=== PATIENT | male | born 1935 | race Caucasian/White ===

== ENCOUNTER 2016-11-07 08:39 | Inpatient (IN) | payer MEDICARE, BC ==
[2016-11-03 10:24] LABS: HEMATOCRIT 37.6 % (40.0-51.0); HEMOGLOBIN 13.1 g/dL (13.6-17.8)
[2016-11-03 10:42] LABS: BUN (BLOOD UREA NITROGEN) 12 MG/DL (6-23); CALCIUM, SERUM 8.7 MG/DL (8.5-10.4); CHLORIDE, SERUM 96 MMOL/L (96-112); CO2 (CARBON DIOXIDE) 28 MMOL/L (24-34); CREATININE 1.03 MG/DL (0.70-1.30); GFR AFRICAN AMERICAN 79 ML/MIN (>=60); GFR NON AFRICAN AMERICAN 68 ML/MIN (>=60); GLUCOSE, SERUM 103 MG/DL (60-99); POTASSIUM, SERUM 3.5 MMOL/L (3.5-5.3); SODIUM, SERUM 132 MMOL/L (135-148)
--- NOTE | ~2016-11-07 | PREOPHP ---
PreOp History and Physical [facility] [address] [place]. [address] NAME: ARGENTINA MG : 35 STATUS : ADM IN PAT#: [id number] AGE: 81 ADM/REG DATE : 11/07/16 MR#: [id number] REPORT SERV DATE: 11/07/16 DICTATED BY: REGIS REBOLLEDO DATE: 11/07/16 REPORT STATUS : Draft TRANSCRIBED BY: MODL DATE: 11/07/16 CHIEF COMPLAINT: Back pain and intractable left hip and leg pain. HISTORY OF PRESENT ILLNESS: This is an 81-year-old male, who has had a previous L3-L4 fusion. He has now developed a totally intractable left buttock and leg pain that has been so bad that he can hardly stand or walk. Pain is 10/10 and is much worse with any attempts at standing and walking. Plain x-rays reveal a marked collapse of the disk space. 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 There is some degree of lateral recess stenosis, but by far the worst is in the foraminal zone. The MRI does show the severe foraminal stenosis as outlined above. The patient is now brought to the surgery, having failed conservative care for hardware removal at L3-L4, followed by left-sided L4-L5 and L5- S1 hemilaminectomy, foraminotomy, and facetectomy. There will be a transforaminal diskectomy, anterior interbody cage insertion, posterolateral interbody fusion with local bone graft and allograft. This will be followed by a posterior percutaneous instrumentation with Voyager system for restabilization. Prior to surgery, the risks, benefits, alternatives, and expectations are explained. Consent form has been signed. Also please note, due to the deformity and due to the desire to carry out the safest and most precise dissection and also in order to identify correct level of surgery, I feel intraoperative navigation is mandatory. PAST MEDICAL HISTORY: Includes osteoarthritis, rheumatoid arthritis, hypercholesterolemia, hypertension. PAST SURGICAL HISTORY: Has included: 1. Previous lumbar fusion at L3-L4. 2. Shoulder arthroscopy and rotator cuff repair. 3. Bilateral carpal tunnel release. CURRENT MEDICATIONS: Include metoprolol, multiple vitamins, nifedipine, Prilosec, potassium, prednisone, simvastatin, alendronate, aspirin, chlorthalidone, folic acid, calcium. ALLERGIES: NONE. SOCIAL HISTORY: He is , right-hand dominant, and never smoked. FAMILY HISTORY: Noncontributory. REVIEW OF SYSTEMS: Denies any current chest pain, pressure, or shortness of breath. PHYSICAL EXAMINATION: VITAL SIGNS: He is 5 feet 9 inches and 175 pounds, BMI is 25.8. GENERAL: He is alert, cooperative, well oriented. Ambulates independently. He does walk with his trunk flexed forward. PreOp History and Physical [address] [place]. [address] NAME: ARGENTINA MG : 35 STATUS : ADM IN PAT#: [id number] AGE: 81 ADM/REG DATE : 11/07/16 MR#: [id number] REPORT SERV DATE: 11/07/16 DICTATED BY: REGIS REBOLLEDO DATE: 11/07/16 REPORT STATUS : Draft TRANSCRIBED BY: CHIQUITA DATE: 11/07/16 HEENT: Grossly normal. LUNGS: Clear to auscultation. HEART: Rate is regular and rhythmic. ABDOMEN: Soft with good bowel sounds. No peritoneal signs are noted. MUSCULOSKELETAL: The spine itself has some loss of lordosis. There are previous incisions which are well healed. He has very limited range of motion. Straight leg raising signs are negative. His motor strength is weakened on the left side. His tibialis anterior and EHL are 3/5. His gastrocsoleus is 4+/5. He cannot heel walk or toe walk. He has some decreased sensation in the L4 and L5 distribution on the left, compared to the right. Patella and Achilles reflexes are lost bilaterally. Toes are downgoing. No ankle clonus is found. No abnormal pain behavior is noted. Amber signs are negative. DANG signs are negative. Orthopedically, he has no pain with moving the hips, knees, or ankles. There are good pulses in all four extremities. No abnormal skin lesions are found. ASSESSMENT AND RECOMMENDATIONS: As listed above. RHONDA/CHIQUITA Regis Rebolledo D.O. / [id number] CC: Regis Rebolledo D.O.
--- NOTE | ~2016-11-07 | CN ---
Consultation Report [facility] [address] [place]. [address] NAME: ARGENTINA MG : 35 STATUS : ADM IN PAT#: [id number] AGE: 81 ADM/REG DATE : 11/07/16 MR#: [id number] REPORT SERV DATE: 11/09/16 DICTATED BY: SANA ROUSSEAU DATE: 11/09/16 REPORT STATUS : Draft TRANSCRIBED BY: MODL DATE: 11/09/16 GI CONSULTATION NOTE DATE OF CONSULTATION: 11/08/2016 REASON FOR CONSULTATION: Possible gastric outlet obstruction. HISTORY OF PRESENT ILLNESS: Mr. Mg is an 81-year-old gentleman with multiple comorbidities including hypertension, dyslipidemia, rheumatoid arthritis, DJD, who is status post recent spinal surgery. GI is being consulted for possible gastric outlet obstruction, which was initially seen on CT of his chest. Repeat CT of his abdomen showed a small hiatal hernia and improved gastric distention. There is left lower lobe consolidation, but the stomach appeared mildly distended, but significantly less distended than previously. There is some mild antral thickening. Duodenum, jejunum, and ileum all appeared normal without any bowel wall thickening or stranding. He has had an NG tube placed earlier today to low intermittent suction and soon after 500 mL of bilious material were retrieved, total for the day is 600 mL. The patient reports significant improvement and denies any nausea or vomiting. PAST MEDICAL HISTORY: Hypertension, dyslipidemia, rheumatoid arthritis, osteoarthritis, DJD, osteopenia. PAST SURGICAL HISTORY: Bilateral carpal tunnel release, bilateral shoulder surgery, spinal surgery with lumbar fusion. SOCIAL HISTORY: Former tobacco use. FAMILY HISTORY: Prostate cancer. MEDICATIONS: Reviewed. ALLERGIES: NO KNOWN DRUG ALLERGIES. PHYSICAL EXAMINATION: GENERAL: The patient is afebrile. He is on minimal Levophed for pressor support at this time. No acute distress. Awake and alert. HEENT: Atraumatic, normocephalic. Anicteric. Mucous membranes are moist. CARDIAC: S1, S2. CHEST: Poor inspiratory and expiratory effort. ABDOMEN: Soft, but distended and tympanic. Positive bowel sounds. Nontender. LABORATORY DATA: Showed WBC 16.3, hemoglobin 12.1, hematocrit 36.4, platelets 315. Sodium 133, potassium 3.3, chloride 97, bicarb 27, BUN 17; creatinine 2.37, was 0.95; glucose 91. KUB showed mild fecal burden in the right colon, but not overly distended, small bowel Consultation Report [facility] [address] [place] [address] NAME: ARGENTINA MG : 35 STATUS : ADM IN PAT#: [id number] AGE: 81 ADM/REG DATE : 11/07/16 MR#: [id number] REPORT SERV DATE: 11/09/16 DICTATED BY: SANA ROUSSEAU DATE: 11/09/16 REPORT STATUS : Draft TRANSCRIBED BY: MODAngelo DATE: 11/09/[address] scan as described above. IMPRESSION AND PLAN: Gastric distention with possible gastric outlet obstruction. We will optimize bowel regimen with Colace and MiraLAX as no bowel movements for the past few days. We would like to evaluate endoscopically; however, would like to make sure that his cardiovascular status is optimized and as he is improving, would like him to be off his Levophed and his acute kidney injury improved prior to anesthesia and endoscopy. Continue NG tube to low intermittent suction for now. We will continue to follow with you. ELENA/CHIQUITA Sana Rousseau MD / [id number] CC: Kalin Griffiths M.D.
--- NOTE | ~2016-11-07 | CN ---
Consultation Report [facility] [address] [place]. [address] NAME: ARGENTINA MG : 35 STATUS : ADM IN PAT#: [id number] AGE: 81 ADM/REG DATE : 11/07/16 MR#: [id number] REPORT SERV DATE: 11/08/16 DICTATED BY: JAZ BAIRES DATE: 11/08/16 REPORT STATUS : Draft TRANSCRIBED BY: MODL DATE: 11/08/16 PULMONARY CONSULT DATE OF CONSULTATION: 11/08/2016 REASON FOR CONSULTATION: Pulmonary consulted secondary to hypoxia. HISTORY OF PRESENT ILLNESS: Mr. Mg is an 81-year-old white male, former smoker, with hypoxia post-spinal surgery. He is complaining of nonproductive cough and shortness of breath since this morning. Pulmonary was consulted for assistance. His history is somewhat vague and he is unable to give full details. He states he had a gradual onset of shortness of breath starting early this morning. He also describes the nonproductive cough as noted. He is unable to give further details regarding his cough. He does have a long history of significant GERD symptoms. He denies chest pain, chest tightness, current wheezing, dysphagia symptoms, abdominal pain, or orthopnea. It is notable that he has a history of frequent wheezing as an outpatient. He denies triggers for his symptoms and denies a history of previous pulmonary diseases, though he is on Singulair as an outpatient. As noted, he denies dysphagia symptoms, but he did have a swallow evaluation in 2009 that was negative for aspiration. As part of his evaluation for hypoxia, he had a CT angiogram today that was negative for a pulmonary embolism, but did reveal bilateral lower lobe consolidation, suspicious for possible aspiration. PAST MEDICAL HISTORY: He denies past medical history of pulmonary diseases. 1. Former smoker. 2. Hypertension. 3. Hyperlipidemia. 4. Rheumatoid arthritis. 5. Osteoarthritis. 6. Bilateral carpal tunnel release. 7. Bilateral shoulder surgery. 8. Previous spine surgery. 9. Osteopenia. FAMILY HISTORY: He denies a family history of pulmonary diseases. SOCIAL HISTORY: Mr. Mg smoked one to one and a half packs of cigarettes per day for 20 years and quit in 1962. He denies ethanol intake, past/present drug use, or occupational exposures. He has a remote history of chewing "a little tobacco." He is and has two living children and one child who from metastatic prostate cancer. Consultation Report [place] [id number] [facility] [place]. [address] NAME: ARGENTINA MG : 35 STATUS : ADM IN PAT#: [id number] AGE: 81 ADM/REG DATE : 11/07/16 MR#: [id number] REPORT SERV DATE: 11/08/16 DICTATED BY: JAZ BAIRES DATE: 11/08/16 REPORT STATUS : Draft TRANSCRIBED BY: CHIQUITA DATE: 11/08/16 MEDICATIONS: Outpatient and inpatient medications were reviewed and are as documented in the record. As noted in the history of present illness, he was on Singulair 10 mg once daily as an outpatient. He was on no other pulmonary medications as an outpatient. ALLERGIES: HE DENIES MEDICATION ALLERGIES. REVIEW OF SYSTEMS: A 10-point system review was conducted and is remarkable for the symptoms as described in the history of present illness. As noted, he has complaints of significant GERD symptoms. He denies symptoms of obstructive sleep apnea. PHYSICAL EXAMINATION: VITAL SIGNS: Temperature 99.3 degrees, heart rate 90-100 by me, blood pressure 85/52, respiratory rate 18, and oxygen saturation 85% on supplemental oxygen at a flow rate of 15 L/minute. GENERAL: Obese white male. Alert, oriented, no apparent distress. HEENT: Normocephalic. Atraumatic. There is no scleral icterus. The conjunctivae are clear. The oropharynx is clear. NECK: Supple. No lymphadenopathy was noted. LUNGS: Good effort. There are diminished breath sounds at both bases. The lungs are clear to auscultation bilaterally. HEART: Regular rate and rhythm. No ectopy was noted. ABDOMEN: Soft. Distended. There are normal bowel sounds in all four quadrants. Nontender. No masses were palpable. BILATERAL EXTREMITIES: There is no clubbing, cyanosis, or edema. NEUROLOGICAL: Limited exam was found to be nonfocal. SKIN: No rashes were noted. LABORATORY RESULTS: Labs were reviewed and are as documented in the record. Notable labs include a white blood cell count of 10.8. The arterial blood gas done today revealed a pH of 7.34, pCO2 of 47, and pO2 of 55 on supplemental oxygen at 100%. CT angiogram of the chest done today did not reveal any pulmonary emboli. There is bibasilar consolidation. There is significant dilatation of the esophagus. The abdomen has an air-fluid level present. ASSESSMENT AND PLAN: Mr. Mg is an 81-year-old white male, former smoker, with possible aspiration secondary to gastric outlet obstruction. He does have hypoxia and hypotension as noted. His symptoms started today and he is post spine surgery. 1. I recommend empiric antibiotic treatment with Zosyn and vancomycin for possible aspiration. 2. We would make him n.p.o. and place a nasogastric tube. 3. Check CT of his abdomen as the CT angiogram of the chest did not include the entire abdomen. Consultation Report [facility] [address] [facility] [place]. [address] NAME: ARGENTINA MG : 35 STATUS : ADM IN [facility]#: [id number] AGE: 81 ADM/REG DATE : 11/07/16 MR#: [id number] REPORT SERV DATE: 11/08/16 DICTATED BY: JAZ BAIRES DATE: 11/08/16 REPORT STATUS : Draft TRANSCRIBED BY: MODL DATE: 11/08/16 4. Consult GI, particularly in light of his CT findings and his history of significant gastroesophageal reflux disease. 5. Check his procalcitonin. 6. Add bronchodilators and nebulized steroids as it may help with his oxygenation. 7. Titrate his supplemental oxygen to an oxygen saturation greater than or equal to 91% and use high-flow nasal cannula or Vapotherm if needed. 8. Improved pulmonary toilet-EzPAP will be added to his regimen. 9. Re-evaluate for possible aspiration and stop empiric antibiotics if indicated. Thank you very much for this consultation. Further recommendations to follow dependent on additional data and patient's response to therapy. PS/MODL Jaz Baires M.D. / [id number] CC: Regis Webster D.O.
--- NOTE | ~2016-11-07 | CN ---
Consultation Report [place] [id number] [facility] [place]. [address] NAME: ARGENTINA MG : 35 STATUS : ADM IN PAT#: [id number] AGE: 81 ADM/REG DATE : 11/07/16 MR#: [id number] REPORT SERV DATE: 11/08/16 DICTATED BY: MELISSA PRICE DATE: 11/08/16 REPORT STATUS : Draft TRANSCRIBED BY: MODL DATE: 11/08/16 NEPHROLOGY CONSULTATION DATE OF CONSULTATION: 11/08/2016 REASON FOR CONSULTATION: Acute kidney injury. HISTORY OF PRESENT ILLNESS: Mr. Mg is a pleasant 81-year-old white male with past medical history of hypertension, rheumatoid arthritis, hyperlipidemia, osteoarthritis, and previous spine surgery, who underwent spinal surgery on 11/07/2016, consisting of hardware removal from L3-L4 with transforaminal diskectomy and left L4-L5, L5-S1 hemilaminectomy and facetectomy. Postoperatively, the patient developed hypoxia and shortness of breath this morning. He underwent a CT angiogram, which did not show pulmonary embolism, but did show a large dilated esophagus with probable aspiration pneumonia. The patient subsequently became hypoxic and hypotensive and was transferred to the ICU. Blood pressure was in the 80s for approximately 1 to 2 hours. Serum creatinine this morning is 1.01 and it is increased to 2.37. Urine output is slowly improving. Presently, he is on vasopressors. CT scan showed no obstruction or hydronephrosis. Urinalysis shows specific gravity of 1.040, 8 white blood cells with no proteinuria. Urine sodium is noted to be low at 12. He has been empirically started on vancomycin and Zosyn. Serum cortisol was normal at 33. PAST MEDICAL HISTORY: 1. Hypertension. 2. Hyperlipidemia. 3. Rheumatoid arthritis. 4. Osteoarthritis. 5. Bilateral carpal tunnel release. 6. Bilateral shoulder surgery. 7. Previous spine surgery. 8. Osteopenia. FAMILY HISTORY: No documented renal disease. SOCIAL HISTORY: The patient smokes one to one and half packs of cigarettes per day. He has remote history of tobacco use. No documented alcohol or drug use. ALLERGIES: NO KNOWN DRUG ALLERGIES. REVIEW OF SYSTEMS: All systems reviewed and negative excluding those mentioned in history of present illness, although somewhat limited as he is sedate. HOME MEDICATIONS: 1. Fosamax 70 daily. Consultation Report [facility] [address] [place]. [address] NAME: ARGENTINA MG : 35 STATUS : ADM IN PAT#: [id number] AGE: 81 ADM/REG DATE : 11/07/16 MR#: [id number] REPORT SERV DATE: 11/08/16 DICTATED BY: MELISSA PRICE DATE: 11/08/16 REPORT STATUS : Draft TRANSCRIBED BY: MODL DATE: 11/08/16 2. Aspirin 81 daily. 3. Edarbi 80 mg daily. 4. B complex 1 daily. 5. Chlorthalidone 25 daily. 6. Vitamin D3 a 1000 daily. 7. Coenzyme Q 100 twice a day. 8. Magnolia 180 daily. 9. Folic acid 1 mg daily. 10.Neurontin 600 twice a day. 11.Methotrexate 2.5 five tablets weekly. 12.Metoprolol 50 daily. 13.Singulair 10 daily. 14.Multivitamin 1 daily. 15.Omeprazole 20 twice a day. 16.Potassium gluconate 595 mg twice a day. 17.Mirapex 0.25 mg daily. 18.Prednisone 5 daily. 19.Simvastatin 40 daily. 20.Nifedipine 30 daily. PHYSICAL EXAMINATION: VITAL SIGNS: Blood pressure 94/53, temperature 98.6, pulse 97, respiratory rate 18. GENERAL: This is acute on chronically ill white male, resting, somewhat lethargic, but arouses and follows simple commands. HEENT: NG tube is noted to be in place. NECK: Supple. No JVD. No thyromegaly. CARDIOVASCULAR: Regular rate and rhythm. S1, S2 without rubs or gallops. Point of maximal impulse nondisplaced. RESPIRATORY: Coarse breath sounds with a few scattered anterior rhonchi. No tachypnea or accessory muscles in use. GI: Abdomen distended, soft. No hepatosplenomegaly. No rebound, guarding, or signs of peritonitis. EXTREMITIES: No cyanosis, clubbing or edema. Distal pulses 2+ symmetrically intact. SKIN: No rash or breakdown. Normal turgor. NEUROLOGIC: Cranial nerves 2 through 12 grossly intact. Motor sensory examinations within normal limits. LABS AND DIAGNOSTIC DATA: Urine sodium 12, urine protein 60. Urinalysis shows specific gravity 1.040, pH of 5, trace leukocyte esterase, 57 red blood cells, 8 white blood cells. Sodium 133, potassium 3.3, chloride 97, bicarb 27, BUN 17, creatinine 2.37. ASSESSMENT: 1. Acute kidney injury, status post back surgery, 11/07/2016 with possible aspiration pneumonia with systemic inflammatory response syndrome and CT angiogram this morning with interval rise in serum creatinine from 1 to 2.3. Suspect acute tubular necrosis Consultation Report [place] [id number] [place]. [address] NAME: ARGENTINA MG : 35 STATUS : ADM IN PAT#: [id number] AGE: 81 ADM/REG DATE : 11/07/16 MR#: [id number] REPORT SERV DATE: 11/08/16 DICTATED BY: MELISSA PRICE DATE: 11/08/16 REPORT STATUS : Draft TRANSCRIBED BY: CHIQUITA DATE: 11/08/16 and contrast-induced nephropathy. 2. Hypotension/shock likely secondary to aspiration pneumonia. 3. Rheumatoid arthritis, on chronic steroids with serum cortisol of 33. 4. Dilated esophagus ? Gastric outlet obstruction, status post nasogastric tube placement with decompression. 5. Hyponatremia. PLAN: 1. Change IV fluids to D5 normal saline. 2. Renally dose antibiotics. 3. Discontinue antihypertensives and Fleet Enema. 4. Supportive care group to follow with you. Thank you for this consultation. YOVANY/CHIQUITA Melissa Price M.D. / [id number] CC: Regis Webster D.O.
--- NOTE | ~2016-11-07 | DS ---
Discharge Summary [facility] [address] [place]. [address] NAME: ARGENTINA MG : 35 STATUS : DIS IN PAT#: [id number] AGE: 81 ADM/REG DATE : 11/07/16 MR#: [id number] REPORT SERV DATE: 11/26/16 DICTATED BY: REGIS REBOLLEDO DATE: 11/25/16 REPORT STATUS : Draft TRANSCRIBED BY: MODAngelo DATE: 11/25/16 Data Collection from hospitalization DISCHARGE DIAGNOSES: 1. Previous fusion with hardware at L3-4. 2. Severe degenerative disk disease, foraminal spinal stenosis, requiring facetectomy at L4-5 and L5-S1. 3. Iatrogenic instability secondary to severe degenerative disk disease. 4. Degenerative lumbar scoliosis. 5. 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 6. Hypertension. 7. Hypercholesterolemia. 8. Rheumatoid arthritis. 9. Osteoarthritis. CONSULTATIONS: 1. Jaz Patel M.D. 2. Melissa Gómez M.D. 3. Jaci Rousseau MD. PROCEDURES PERFORMED: 1. Microscopic and navigation-assisted surgery; hardware removal at L3-4; left L4-5 and L5- S1 hemilaminectomy, foraminotomy, and facetectomy; garcia osteotomy at L5 and S1 (posterior column osteotomy); transforaminal diskectomy at L4-5 and L5-S1; anterior interbody Elevate cage at L4-5 and L5-S1; posterior lateral interbody fusion with local bone graft, allograft, and a small dosage of bone protein; posterior percutaneous Voyager segmental instrumentation at L3-S1 on 11/07/2016. 2. CTA of the chest on 11/08/2016. 3. CT scan of the abdomen and pelvis without contrast on 11/08/2016. PATHOLOGY: Lumbar spine repair - fragmented cartilage, bone, and soft tissue. No evidence was seen of an infectious or neoplastic process. Metal removal - orthopedic hardware (gross assessment). MEDICATIONS: ProAir two puffs via inhaler every four hours as needed, Fosamax 70 mg every seven days, aspirin 81 mg at bedtime, super B complex one tablet as instructed, vitamin D3 1000 units daily, CoQ10 100 mg twice a day, Colace 100 mg twice a day, Magnolia 180 mg every evening, folic acid 1 mg every evening, Neurontin 500 mg twice a day, Balfour 5/325 one tablet every four hours as needed, Levaquin 750 mg daily, Robaxin 500 mg every eight hours, Toprol- XL 25 mg every evening, Flagyl 500 mg three times a day, Dulera two puffs via inhaler twice a day, Singulair 10 mg at bedtime, Centrum tablets one tablet daily, Prilosec 20 mg twice a day, Mirapex 0.25 mg at bedtime, Deltasone 5 mg every morning, Zocor 40 mg at bedtime, and Spiriva one capsule via inhaler daily. He was instructed not to continue Nifedical XL, Edarbi, Hygroton, methotrexate, calcium, and potassium gluconate. CONDITION AT DISCHARGE: Stable. DISPOSITION: The patient was discharged home on a regular diet with activities as Discharge Summary [address] [place]. [address] NAME: ARGENTINA MG : 35 STATUS : DIS IN PAT#: [id number] AGE: 81 ADM/REG DATE : 11/07/16 MR#: [id number] REPORT SERV DATE: 11/26/16 DICTATED BY: REGIS REBOLLEDO DATE: 11/25/16 REPORT STATUS : Draft TRANSCRIBED BY: CHIQUITA DATE: 11/25/16 instructed. He would follow up with me on 11/24/2016. HOSPITAL COURSE: This is an 81-year-old man who had undergone previous L3-L4 fusion. He has now developed totally intractable left buttock and left leg pain that had been so bad that he could hardly stand or walk. The pain was 10/10 and was much worse with any attempt at standing and walking. X-rays had revealed marked collapse of the disk space. There was degenerative scoliosis with the convex side on the left and the combination of the disk space collapse, degenerative scoliosis, and facet hypertrophy which had led to severe intractable foraminal stenosis at L4-L5 and L5-S1. There was some degree of lateral recess stenosis, but by far the worst within the foraminal zone. MRI had shown severe foraminal stenosis. Treatment options were discussed and it was elected to proceed with surgical intervention. He was admitted to the hospital at this time for further evaluation and treatment. Upon admission, he was taken to the operating room where he underwent the above-mentioned procedure. He tolerated this well, and there were no complications. On postop day #1, he was seen by Dr. Jaz Patel regarding hypoxia. The patient does have a history of frequent wheezing as an outpatient. A CTA of the chest was performed. This was negative for pulmonary embolism, but did reveal bilateral lower lobe consolidation, suspicious for possible aspiration. The abdomen had an air-fluid level present. He was held n.p.o. and a nasogastric tube was placed. He was started on empiric antibiotic treatment with Zosyn and vancomycin. Procalcitonin level was going to be checked. Bronchodilators were added as well as nebulized steroids. We would titrate supplemental oxygen to an oxygen saturation greater than or equal to 91% and use high flow nasal cannula or Vapotherm as needed. EzPAP was added to his regimen. He was also seen by Dr. Melissa Gómez regarding acute kidney injury. A CT scan of the abdomen and pelvis without contrast had also been performed. His creatinine had increased to 2.37. Urine output was slowly improving. He was presently on vasopressors. CT scan had shown no obstruction or hydronephrosis. Hypotension/shock was felt likely secondary to aspiration pneumonia. IV fluids were changed to D5 normal saline. His antibiotics would be renally dosed. We would discontinue antihypertensives and Fleet Enema. He was also seen by Dr. Jaci Rousseau regarding possible gastric outlet obstruction. An NG tube had been placed earlier in the day to low intermittent suction and soon after 500 mL of bilious material was retrieved, a total of 600 mL was the total for the day. He reported significant improvement, and he denied any nausea or vomiting. White count was 16.3. KUB showed mild fecal burden in the right colon, but not overly distended small bowel loops. He was felt to have gastric distention with possible gastric outlet obstruction. We would optimize his bowel regimen with Colace and MiraLAX. We would like to evaluate him endoscopically. However, we would like to make sure his cardiovascular status was optimized and that he was improving. We would like for him to be off Levophed and his acute kidney injury improved prior to anesthesia and endoscopy. We continued the NG tube to low intermittent suction for now. A PICC line was inserted. Echocardiogram was performed. On 11/09/2016, he was doing much better. His chest x-ray showed increased pulmonary congestion. He was off pressors. Creatinine level was 2.5. He was off Levophed. Renal function had worsened. We would continue to closely monitor this. He did have some more confusion. The following day, NG tube remained in place. He did require blood pressure support. Medical management continued. He had been placed back on low-dose Levophed. Discharge Summary [facility] [address] [place]. [address] NAME: ARGENTINA MG : 35 STATUS : DIS IN PAT#: [id number] AGE: 81 ADM/REG DATE : 11/07/16 MR#: [id number] REPORT SERV DATE: 11/26/16 DICTATED BY: REGIS REBOLLEDO DATE: 11/25/16 REPORT STATUS : Draft TRANSCRIBED BY: MODL DATE: 11/25/16 Stress dose steroids were added. White count was decreasing. BUN and creatinine were decreasing. Supportive care continued. Electrolyte protocol was in place. IV fluids were held. On 11/11/2016, he was off pressors. He was in no acute distress. IV fluids had been restarted. He was much more alert. He was still being held n.p.o. MiraLAX was given. Reglan was being provided as well as docusate. He was going to be transferred to the floor. Creatinine had decreased to 1.56. BUN had increased to 39. He was evaluated by Physical Therapy. The NG tube was discontinued. Over the next several days, he remained stable. His abdomen was soft and nontender. He had no edema. Serum creatinine was 1.14. White count had decreased to 8.4. Discharge planning was performed. He was doing much better. On 11/15/2016, he was doing well. His vital signs were stable. He did have a bowel movement. Discharge instructions were given. Due to his improved and stable condition, he was discharged home with the above-stated instructions. Information collected by: Abbey Poole I submit the above information as my discharge summary. TG/CHIQUITA Regis Rebolledo D.O. / [id number] CC: Kalin Griffiths M.D. Melissa Gómez M.D. Jaci Rousseau MD
--- NOTE | ~2016-11-07 | OP ---
Record Of Operation [facility] [address] [facility] [address] [place]. [address] NAME: ARGENTINA MG : 35 STATUS : ADM IN PAT#: [id number] AGE: 81 ADM/REG DATE : 11/07/16 MR#: [id number] REPORT SERV DATE: 11/08/16 DICTATED BY: REGIS REBOLLEDO DATE: 11/07/16 REPORT STATUS : Draft TRANSCRIBED BY: MODL DATE: 11/07/16 DATE OF PROCEDURE: PREOPERATIVE DIAGNOSES: 1. Previous fusion with hardware at L3-4. 2. Severe degenerative disk disease, foraminal spinal stenosis, requiring facetectomy L4- 5, L5-S1. 3. Iatrogenic instability secondary to severe degenerative disk disease. 4. Degenerative lumbar scoliosis. POSTOPERATIVE DIAGNOSES: 1. Previous fusion with hardware at L3-4. 2. Severe degenerative disk disease, foraminal spinal stenosis, requiring facetectomy L4- 5, L5-S1. 3. Iatrogenic instability secondary to severe degenerative disk disease. 4. Degenerative lumbar scoliosis. 5. 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 PROCEDURES: 1. Microscopic and navigation-assisted surgery. 2. Hardware removal, L3-4. 3. Left L4-5 and L5-S1 hemilaminectomy, foraminotomy, and facetectomy. 4. Brewer osteotomy at L5 and S1 (posterior column osteotomy). 5. Transforaminal diskectomy L4-5 L5-S1. 6. Anterior interbody Elevate cage L4-5, L5-S1. 7. Posterior lateral interbody fusion with local bone graft allograft and a small dosage of bone protein. 8. Posterior percutaneous Voyager segmental instrumentation, L3-S1. SURGEON: Regis Rebolledo D.O. CENTRIFUGAL CASTING MACHINE TENDER: Claude. ANESTHETIC: General. BLOOD LOSS: 125 mL. DESCRIPTION OF PROCEDURE: Antibiotic prophylaxis was given. Neurophysiology monitoring leads were inserted. The patient was brought to the operative suite. General anesthetic including endotracheal intubation was administered. Hardy catheter was inserted with sterile technique. The patient was placed prone on a Magdi spine frame. Bony prominences were carefully padded. Thoracolumbar spine was scrubbed with Hibiclens solution. DuraPrep was painted and sterile drapes applied. A small stab wound was carried out over the right posterior superior iliac spine. A percutaneous pin with navigational frame attached was inserted in PSIS. Intraoperative CT Record Of Operation [facility] [address] [place]. [address] NAME: ARGENTINA MG : 35 STATUS : ADM IN PAT#: [id number] AGE: 81 ADM/REG DATE : 11/07/16 MR#: [id number] REPORT SERV DATE: 11/08/16 DICTATED BY: REGIS REBOLLEDO DATE: 11/07/16 REPORT STATUS : Draft TRANSCRIBED BY: MODL DATE: 11/07/16 scan with O-arm obtained, CT information used to register navigational system. With navigational assistance, I identified the hardware at L3-4 starting on the right side. A skin incision was carried out approximately 2 cm in length. A blunt navigated probe was placed through the fascia and muscle, and docked over the hardware. Muscle dilators were inserted followed by placement of a tubular retractor attached to an arm mount on the table. The microscope was sterilely draped and used throughout the remainder of the procedure. With navigational assistance, I identified the hardware. I removed the set screws. I removed the kaushal and then removed each of the screws. The screw at L4 on the right actually was broken. The tulip of the screw was removed separately. The screw itself was buried in the pedicle and was not attempted to be removed. I then extended the skin incision just lateral to the facet joints of L4-5 and L5-S1 for allowance of percutaneous screw insertion later in the case. I moved to the left side of the patient. I then carried out the same identical procedure starting with a 2-cm skin incision over the hardware at L3-4, docking it, removing the hardware. At L3-4, there was some pseudoarthrosis present as I could slightly move the interbody space. After hardware removal and wound irrigation, I moved to L4-5. I did so by removing the retractor and then extended the skin incision another 5 cm distally. I placed a blunt navigated probe through the fascia muscle and docked over the L4-5 facet joint. Once again, muscle dilator was inserted followed by placement of a tubular retractor, which was once again attached to the arm mount on the table. Microscope continued to be used in a sterile fashion. With navigational assistance, I identified the top of the pedicle of L5 and the inferior pedicle of L4. The distance between the inferior pedicle of L4 and the superior pedicle of L5 was very narrow and did not allow hardly any space. I decided to carry out a Brewer osteotomy to increase the interpedicular distance and allow entry into the inferior aspect of the disk space laterally to decrease and lessen the risk of contusion or injury to the exiting nerve root. I then carried out the removal of superior articular process of L5, the inferior articular process of L4, the lamina of L4, and the pars interarticularis at L4 using a combination of a cutting bur, a michaelle bur, and 2 and 3 mm Kerrison rongeurs. The Brewer posterior column osteotomy was completed using burs. I did remove the posterior superior corner of the vertebral body of L5. I then entered the disk space. A transforaminal diskectomy was carried out with curettes, rongeurs, and disk alyssa. Intradiscal trial was carried out. The wound was irrigated. I then packed the interbody space with bone graft. I placed a 9-mm cage through the inner laminar space against the anterior longitudinal ligament leaving the cage mostly on the left side to correct some of the coronal balance. The cage was expanded. The posterolateral interbody fusion with local bone graft allograft was completed with copious bone grafting at least 30 40 mL of grafting material. Record Of Operation [facility] [address] [facility] [place]. [address] NAME: ARGENTINA MG : 35 STATUS : ADM IN [facility]#: [id number] AGE: 81 ADM/REG DATE : 11/07/16 MR#: [id number] REPORT SERV DATE: 11/08/16 DICTATED BY: REGIS REBOLLEDO DATE: 11/07/16 REPORT STATUS : Draft TRANSCRIBED BY: MODAngelo DATE: 11/07/16 I then removed the retractor and moved distally through a separate fascial opening. I placed a tubular retractor over the L5-S1 level. Once again, I carried out the same identical steps once again. There was marked collapse of the disk space. Severe foraminal stenosis, thus I carried out the hemilaminectomy, foraminotomy, and facetectomy. Transforaminal diskectomy was completed after carrying out the Brewer posterior column osteotomy. After the transforaminal diskectomy, interbody trial, interbody grafting, and interbody cage insertion was all carried out as noted above. Finally, the retractor was removed. I used navigational assistance with polyaxial Voyager screws placed at L3, 4, 5, and S1 on the left and L3, L5, and S1 on the right. The captured 80 mm lordotic kaushal was placed through the top portion of the screw extenders, reduced into the tulip of the pedicle screw. The set screw was inserted, tightened with a torque wrench providing rigid stability. Intraoperative CT scan with O-arm repeated showing excellent position of all implants. The fascial opening was closed with interrupted #1 Vicryl suture, subcutaneous tissue closed with 2-0 Vicryl suture, 2-0 vertical mattress in nylon suture used for skin closure. Sterile dressings applied. The patient awakened, extubated, taken to recovery room in satisfactory condition having tolerated the procedure well. RHONDA/CHIQUITA Regis Rebolledo D.O. / [id number] CC: Regis Rebolledo D.O.
[~2016-11-07 08:39] MED LIST: ALLEGRA180 PO; ASAB PO; ATEN25 PO; CALCIUM PO; CENTRUM PO; CO-Q-10 PO; DIOVAN HCT320 MG/25 PO; EDARBI80 MG PO; FISH-EPA1000 MG PO; FLEXERIL5 MG PO; FOLIC PO; FOSAMAX70 MG PO; HYGROTON 25 MG25 MG PO; KLONO5 PO; LORTAB 5 PO; METHOC750B PO; MIRAPEX250 PO; MOBIC15 MG PO; MTX2.5 PO; NEUR600 PO; NIFEDICAL XL PO; P5 PO; POTASSIUM GLUCO99 MG PO; PRILO PO; SINGULAIR1 PO; SUPER B COMP PO; TOPXL50 PO; VITAMIN D31000 UNIT PO; ZOCOR40 PO
[2016-11-07 17:08] LABS: BASOPHILS 0.1 %; BASOPHILS ABSOLUTE 0.02 10/3/uL (0.0-0.16); EOSINOPHILS 0.4 %; EOSINOPHILS ABSOLUTE 0.07 10/3/uL (0.0-0.53); HEMATOCRIT 35.5 % (40.0-51.0); HEMOGLOBIN 12.2 g/dL (13.6-17.8); IMMATURE GRANULOCYTES 0.9 %; IMMATURE GRANULOCYTES ABSOLUTE 0.14 10/3/uL (0.0-0.11); LYMPHOCYTES 13.6 %; LYMPHOCYTES ABSOLUTE 2.24 10/3/uL (0.67-4.30); MEAN PLATELET VOLUME 8.7 fL (9.2-13.0); MONOCYTES ABSOLUTE 0.98 10/3/uL (0.21-1.20); NEUTROPHILS ABSOLUTE 13.01 10/3/uL (2.02-8.40); PLATELET COUNT 281 10/3/uL (150-400); RBC DISTRIBUTION WIDTH 14.1 % (12.0-16.0); RED CELL COUNT 3.86 10/6/uL (4.7-6.1)
[2016-11-07 17:09] LABS: MANUAL DIFF NO %; MEAN CORPUS HGB CONC 34.4 g/dL (32.0-36.0); MEAN CORPUSCULAR HEMOGLOB 31.6 pg (26.0-34.0); WHITE BLOOD CELLS 16.5 10/3/uL (4.5-10.5)
[2016-11-07 17:19] LABS: BUN (BLOOD UREA NITROGEN) 13 MG/DL (6-23); CHLORIDE, SERUM 99 MMOL/L (96-112); CO2 (CARBON DIOXIDE) 26 MMOL/L (24-34); CREATININE 0.95 MG/DL (0.70-1.30); GFR AFRICAN AMERICAN 87 ML/MIN (>=60); GFR NON AFRICAN AMERICAN 75 ML/MIN (>=60); POTASSIUM, SERUM 3.7 MMOL/L (3.5-5.3); SODIUM, SERUM 135 MMOL/L (135-148)
[2016-11-07 17:21] LABS: GLUCOSE, SERUM 150 MG/DL (60-99)
[2016-11-08 04:55] LABS: HEMATOCRIT 38.5 % (40.0-51.0); MEAN CORPUS HGB CONC 33.8 g/dL (32.0-36.0); MEAN CORPUSCULAR HEMOGLOB 31.9 pg (26.0-34.0); MEAN CORPUSCULAR VOLUME 94.6 fL (80-100); MEAN PLATELET VOLUME 9.1 fL (9.2-13.0); PLATELET COUNT 315 10/3/uL (150-400); RBC DISTRIBUTION WIDTH 14.1 % (12.0-16.0); RED CELL COUNT 4.07 10/6/uL (4.7-6.1); WHITE BLOOD CELLS 10.8 10/3/uL (4.5-10.5)
[2016-11-08 04:58] LABS: MANUAL DIFF YES %
[2016-11-08 05:05] LABS: BUN (BLOOD UREA NITROGEN) 12 MG/DL (6-23); CALCIUM, SERUM 8.6 MG/DL (8.5-10.4); CHLORIDE, SERUM 99 MMOL/L (96-112); CREATININE 1.01 MG/DL (0.70-1.30); GFR AFRICAN AMERICAN 80 ML/MIN (>=60); GFR NON AFRICAN AMERICAN 69 ML/MIN (>=60); POTASSIUM, SERUM 3.4 MMOL/L (3.5-5.3); SODIUM, SERUM 135 MMOL/L (135-148)
[2016-11-08 05:06] LABS: CO2 (CARBON DIOXIDE) 32 MMOL/L (24-34); GLUCOSE, SERUM 105 MG/DL (60-99)
[2016-11-08 05:23] LABS: BAND NEUTROPHILS 8 %; EOSINOPHILS 1 %; EOSINOPHILS ABSOLUTE (CALC) 0.11 10/3/uL (0.0-0.53); LYMPHOCYTES 9 %; LYMPHOCYTES ABSOLUTE (CALC) 0.97 10/3/uL (0.67-4.30); MONOCYTES 5 %; MONOCYTES ABSOLUTE (CALC) 0.54 10/3/uL (0.21-1.20); NEUTROPHILS ABSOLUTE (CALC) 9.18 10/3/uL (2.02-8.40); PLATELET ESTIMATE ADQ (ADEQUATE); SEGMENTED NEUTROPHIL (0) 77 %; TOTAL NUCLEATED CELLS 100
[2016-11-08 05:24] LABS: RBC MORPHOLOGY NORM (NORMAL)
[2016-11-08 06:31] LABS: ALLENS TEST Pos; BE (BASE EXCESS) -1.4 MEQ/L (0 +/- 2.5); CARBOXYHEMOGLOBIN 0.7 % (0-3); DEVICE NRB; HCO3 (ACTUAL BICARBONATE) 24.7 MEQ/L (23-27); HEMOBLOGIN CONTENT 13.8 G/DL (14-18); INSTRUMENT SERIAL # 8083; METHEMOGLOBIN 0.4 % (0-3); O2 CONTENT 16.6 VOL% (18-24); OPERATOR ID 17370; PCO2 (CO2 TENSION) 47 MMHG (35-45); PO2 (O2 TENSION) 55 MMHG (79-93); SAMPLE Arterial; pH 7.34 (7.37-7.43)
[2016-11-08 16:19] LABS: BASOPHILS 0.1 %; BASOPHILS ABSOLUTE 0.02 10/3/uL (0.0-0.16); EOSINOPHILS 0.2 %; EOSINOPHILS ABSOLUTE 0.03 10/3/uL (0.0-0.53); HEMATOCRIT 36.4 % (40.0-51.0); HEMOGLOBIN 12.1 g/dL (13.6-17.8); IMMATURE GRANULOCYTES 0.3 %; IMMATURE GRANULOCYTES ABSOLUTE 0.05 10/3/uL (0.0-0.11); LYMPHOCYTES 3.1 %; MEAN CORPUS HGB CONC 33.2 g/dL (32.0-36.0); MEAN CORPUSCULAR HEMOGLOB 31.6 pg (26.0-34.0); MEAN PLATELET VOLUME 9.2 fL (9.2-13.0); MONOCYTES ABSOLUTE 0.97 10/3/uL (0.21-1.20); NEUTROPHILS 90.3 %; NEUTROPHILS ABSOLUTE 14.69 10/3/uL (2.02-8.40); PLATELET COUNT 315 10/3/uL (150-400); RBC DISTRIBUTION WIDTH 14.5 % (12.0-16.0); RED CELL COUNT 3.83 10/6/uL (4.7-6.1)
[2016-11-08 16:20] LABS: MANUAL DIFF NO %; WHITE BLOOD CELLS 16.3 10/3/uL (4.5-10.5)
[2016-11-08 16:33] LABS: ALBUMIN 2.8 G/DL (3.5-5.0); BUN (BLOOD UREA NITROGEN) 17 MG/DL (6-23); CALCIUM, SERUM 8.5 MG/DL (8.5-10.4); CHLORIDE, SERUM 97 MMOL/L (96-112); CK-MB 15.5 NG/ML; CKMB INDEX (NOT ORD) 2.3; CO2 (CARBON DIOXIDE) 27 MMOL/L (24-34); CPK 665 U/L (0-200); CREATININE 2.37 MG/DL (0.70-1.30); GFR AFRICAN AMERICAN 29 ML/MIN (>=60); GFR NON AFRICAN AMERICAN 25 ML/MIN (>=60); GLUCOSE, SERUM 91 MG/DL (60-99); PHOSPHORUS, SERUM 2.1 MG/DL (2.5-4.5); POTASSIUM, SERUM 3.3 MMOL/L (3.5-5.3); SODIUM, SERUM 133 MMOL/L (135-148); TROPONIN I 0.04 NG/ML (<0.05)
[2016-11-08 16:46] LABS: BAND NEUTROPHILS 33 %; LYMPHOCYTES 5 %; LYMPHOCYTES ABSOLUTE (CALC) 0.82 10/3/uL (0.67-4.30); MONOCYTES 5 %; MONOCYTES ABSOLUTE (CALC) 0.82 10/3/uL (0.21-1.20); NEUTROPHILS ABSOLUTE (CALC) 14.67 10/3/uL (2.02-8.40); PLATELET ESTIMATE ADQ (ADEQUATE); RBC MORPHOLOGY NORM (NORMAL); SEGMENTED NEUTROPHIL (0) 57 %; TOTAL NUCLEATED CELLS 100
[2016-11-08 17:15] LABS: PROCALCITONIN 9.62 ng/mL (<0.5)
[2016-11-08 17:46] LABS: ASCORBIC ACID (UR NOT ORDER) NEG (NEG); BILIRUBIN, URINE NEGATIVE (NEG); KETONE, URINE NEGATIVE (NEG); LEUKOCYTE ESTERASE(NOT OR TRACE (NEG); WBC (NOT ORDERED) (RFLEX) 8 (0-5)
[2016-11-08 21:50] LABS: CK-MB 12.5 NG/ML
[2016-11-08 21:52] LABS: TROPONIN I 0.05 NG/ML (<0.05)
[2016-11-09 03:42] LABS: HEMATOCRIT 36.6 % (40.0-51.0); HEMOGLOBIN 12.4 g/dL (13.6-17.8); MEAN CORPUS HGB CONC 33.9 g/dL (32.0-36.0); MEAN CORPUSCULAR VOLUME 94.6 fL (80-100); PLATELET COUNT 305 10/3/uL (150-400); RBC DISTRIBUTION WIDTH 14.1 % (12.0-16.0); RED CELL COUNT 3.87 10/6/uL (4.7-6.1)
[2016-11-09 03:46] LABS: MANUAL DIFF YES %; WHITE BLOOD CELLS 23.2 10/3/uL (4.5-10.5)
[2016-11-09 03:48] LABS: INTERNATIONAL NORMAL RATI 1.3 UNITS (-); PROTIME (NOT ORD) 16.4 SEC (12.0-14.5)
[2016-11-09 03:58] LABS: ALBUMIN 2.6 G/DL (3.5-5.0); BUN (BLOOD UREA NITROGEN) 25 MG/DL (6-23); CALCIUM, SERUM 8.3 MG/DL (8.5-10.4); CHLORIDE, SERUM 98 MMOL/L (96-112); CO2 (CARBON DIOXIDE) 26 MMOL/L (24-34); CREATININE 2.53 MG/DL (0.70-1.30); GFR AFRICAN AMERICAN 27 ML/MIN (>=60); GFR NON AFRICAN AMERICAN 23 ML/MIN (>=60); GLUCOSE, SERUM 114 MG/DL (60-99); POTASSIUM, SERUM 4.5 MMOL/L (3.5-5.3); SODIUM, SERUM 132 MMOL/L (135-148)
[2016-11-09 04:02] LABS: CK-MB 15.8 NG/ML; CKMB INDEX (NOT ORD) 1.9; TROPONIN I 0.05 NG/ML (<0.05)
[2016-11-09 04:47] LABS: PROCALCITONIN 17.84 ng/mL (<0.5)
[2016-11-09 05:58] LABS: BAND NEUTROPHILS 28 %; EOSINOPHILS 1 %; EOSINOPHILS ABSOLUTE (CALC) 0.23 10/3/uL (0.0-0.53); LYMPHOCYTES 5 %; LYMPHOCYTES ABSOLUTE (CALC) 1.16 10/3/uL (0.67-4.30); MONOCYTES 7 %; MONOCYTES ABSOLUTE (CALC) 1.62 10/3/uL (0.21-1.20); NEUTROPHILS ABSOLUTE (CALC) 20.18 10/3/uL (2.02-8.40); PLATELET ESTIMATE ADQ (ADEQUATE); RBC MORPHOLOGY NORM (NORMAL); SEGMENTED NEUTROPHIL (0) 59 %; TOTAL NUCLEATED CELLS 100
[2016-11-09 10:27] LABS: ALBUMIN 2.4 G/DL (3.5-5.0); DIRECT BILIRUBIN 0.2 MG/DL (0.0-0.4); INDIRECT BILIRUBIN(NOT ORDER) 0.4 MG/DL (0.1-0.9); TOTAL BILIRUBIN 0.6 MG/DL (0-1.2); TOTAL PROTEIN 5.6 G/DL (6.0-8.5); ULTRASENSITIVE TSH 4.5 MCIU/ML (0.358-3.740)
[2016-11-10 04:20] LABS: BASOPHILS 0.1 %; BASOPHILS ABSOLUTE 0.01 10/3/uL (0.0-0.16); EOSINOPHILS 0.6 %; EOSINOPHILS ABSOLUTE 0.12 10/3/uL (0.0-0.53); IMMATURE GRANULOCYTES 0.4 %; IMMATURE GRANULOCYTES ABSOLUTE 0.07 10/3/uL (0.0-0.11); LYMPHOCYTES ABSOLUTE 0.74 10/3/uL (0.67-4.30); MEAN CORPUS HGB CONC 34.6 g/dL (32.0-36.0); MEAN CORPUSCULAR VOLUME 92.5 fL (80-100); MEAN PLATELET VOLUME 8.8 fL (9.2-13.0); MONOCYTES 6.7 %; MONOCYTES ABSOLUTE 1.26 10/3/uL (0.21-1.20); NEUTROPHILS 88.2 %; NEUTROPHILS ABSOLUTE 16.49 10/3/uL (2.02-8.40); PLATELET COUNT 256 10/3/uL (150-400); RBC DISTRIBUTION WIDTH 14.2 % (12.0-16.0); WHITE BLOOD CELLS 18.7 10/3/uL (4.5-10.5)
[2016-11-10 04:23] LABS: HEMATOCRIT 28.3 % (40.0-51.0); HEMOGLOBIN 9.8 g/dL (13.6-17.8); MANUAL DIFF NO %; RED CELL COUNT 3.06 10/6/uL (4.7-6.1)
[2016-11-10 04:38] LABS: ALLENS TEST Pos; BE (BASE EXCESS) -2.4 MEQ/L (0 +/- 2.5); CARBOXYHEMOGLOBIN 0.4 % (0-3); DEVICE NC; HCO3 (ACTUAL BICARBONATE) 22.9 MEQ/L (23-27); HEMOBLOGIN CONTENT 10.5 G/DL (14-18); INSTRUMENT SERIAL # 8087; METHEMOGLOBIN 0.3 % (0-3); O2 CONTENT 14.3 VOL% (18-24); OPERATOR ID 33449; PCO2 (CO2 TENSION) 41 MMHG (35-45); PO2 (O2 TENSION) 94 MMHG (79-93); SAMPLE Arterial; pH 7.36 (7.37-7.43)
[2016-11-10 04:39] LABS: A/G RATIO 0.7 (0.7-1.9); ALBUMIN 2.3 G/DL (3.5-5.0); ALKALINE PHOSPHATASE 53 U/L (45-117); BUN (BLOOD UREA NITROGEN) 36 MG/DL (6-23); CALCIUM, SERUM 7.8 MG/DL (8.5-10.4); CHLORIDE, SERUM 103 MMOL/L (96-112); CO2 (CARBON DIOXIDE) 26 MMOL/L (24-34); CREATININE 1.86 MG/DL (0.70-1.30); GFR AFRICAN AMERICAN 38 ML/MIN (>=60); GFR NON AFRICAN AMERICAN 33 ML/MIN (>=60); GLOBULIN 3.3 G/DL (2.5-4.1); GLUCOSE, SERUM 123 MG/DL (60-99); POTASSIUM, SERUM 3.4 MMOL/L (3.5-5.3); SGOT(AST) 44 U/L (5-40); SGPT(ALT) 21 U/L (5-65); SODIUM, SERUM 137 MMOL/L (135-148); TOTAL BILIRUBIN 0.6 MG/DL (0-1.2); TOTAL PROTEIN 5.6 G/DL (6.0-8.5)
[2016-11-10 05:52] LABS: PROCALCITONIN 13.01 ng/mL (<0.5)
[2016-11-11 04:11] LABS: BASOPHILS 0 %; EOSINOPHILS 0 %; HEMATOCRIT 27.8 % (40.0-51.0); HEMOGLOBIN 9.5 g/dL (13.6-17.8); IMMATURE GRANULOCYTES 0.3 %; IMMATURE GRANULOCYTES ABSOLUTE 0.05 10/3/uL (0.0-0.11); LYMPHOCYTES 1.9 %; LYMPHOCYTES ABSOLUTE 0.29 10/3/uL (0.67-4.30); MANUAL DIFF NO %; MEAN CORPUS HGB CONC 34.2 g/dL (32.0-36.0); MEAN CORPUSCULAR HEMOGLOB 31.5 pg (26.0-34.0); MEAN CORPUSCULAR VOLUME 92.1 fL (80-100); MEAN PLATELET VOLUME 8.6 fL (9.2-13.0); MONOCYTES ABSOLUTE 0.75 10/3/uL (0.21-1.20); NEUTROPHILS 92.8 %; NEUTROPHILS ABSOLUTE 13.92 10/3/uL (2.02-8.40); PLATELET COUNT 248 10/3/uL (150-400); RED CELL COUNT 3.02 10/6/uL (4.7-6.1)
[2016-11-11 04:34] LABS: ALBUMIN 2.3 G/DL (3.5-5.0); BUN (BLOOD UREA NITROGEN) 39 MG/DL (6-23); CALCIUM, SERUM 8.4 MG/DL (8.5-10.4); CHLORIDE, SERUM 101 MMOL/L (96-112); CO2 (CARBON DIOXIDE) 26 MMOL/L (24-34); CREATININE 1.56 MG/DL (0.70-1.30); GFR AFRICAN AMERICAN 48 ML/MIN (>=60); GFR NON AFRICAN AMERICAN 41 ML/MIN (>=60); GLUCOSE, SERUM 144 MG/DL (60-99); PHOSPHORUS, SERUM 3.6 MG/DL (2.5-4.5); POTASSIUM, SERUM 3.5 MMOL/L (3.5-5.3); SODIUM, SERUM 138 MMOL/L (135-148)
[2016-11-12 04:19] LABS: BASOPHILS 0.1 %; BASOPHILS ABSOLUTE 0.01 10/3/uL (0.0-0.16); EOSINOPHILS 0 %; HEMOGLOBIN 10.6 g/dL (13.6-17.8); IMMATURE GRANULOCYTES 1.1 %; IMMATURE GRANULOCYTES ABSOLUTE 0.13 10/3/uL (0.0-0.11); LYMPHOCYTES 5.8 %; LYMPHOCYTES ABSOLUTE 0.68 10/3/uL (0.67-4.30); MEAN CORPUS HGB CONC 34.2 g/dL (32.0-36.0); MEAN CORPUSCULAR HEMOGLOB 31.4 pg (26.0-34.0); MEAN CORPUSCULAR VOLUME 91.7 fL (80-100); MEAN PLATELET VOLUME 8.8 fL (9.2-13.0); MONOCYTES 10.9 %; MONOCYTES ABSOLUTE 1.29 10/3/uL (0.21-1.20); NEUTROPHILS 82.1 %; NEUTROPHILS ABSOLUTE 9.71 10/3/uL (2.02-8.40); PLATELET COUNT 290 10/3/uL (150-400); RBC DISTRIBUTION WIDTH 14.4 % (12.0-16.0); RED CELL COUNT 3.38 10/6/uL (4.7-6.1); WHITE BLOOD CELLS 11.8 10/3/uL (4.5-10.5)
[2016-11-12 04:21] LABS: MANUAL DIFF NO %
[2016-11-12 04:32] LABS: ALBUMIN 2.6 G/DL (3.5-5.0); BUN (BLOOD UREA NITROGEN) 37 MG/DL (6-23); CALCIUM, SERUM 9.1 MG/DL (8.5-10.4); CHLORIDE, SERUM 103 MMOL/L (96-112); CO2 (CARBON DIOXIDE) 27 MMOL/L (24-34); CREATININE 1.25 MG/DL (0.70-1.30); GFR AFRICAN AMERICAN 62 ML/MIN (>=60); GFR NON AFRICAN AMERICAN 54 ML/MIN (>=60); PHOSPHORUS, SERUM 3.6 MG/DL (2.5-4.5); SODIUM, SERUM 141 MMOL/L (135-148)
[2016-11-12 04:33] LABS: GLUCOSE, SERUM 93 MG/DL (60-99)
[2016-11-13 08:24] LABS: HEMATOCRIT 30.7 % (40.0-51.0); HEMOGLOBIN 10.2 g/dL (13.6-17.8); MEAN CORPUS HGB CONC 33.2 g/dL (32.0-36.0); MEAN CORPUSCULAR VOLUME 93.3 fL (80-100); MEAN PLATELET VOLUME 8.9 fL (9.2-13.0); PLATELET COUNT 310 10/3/uL (150-400); RBC DISTRIBUTION WIDTH 14.6 % (12.0-16.0); RED CELL COUNT 3.29 10/6/uL (4.7-6.1); WHITE BLOOD CELLS 8.4 10/3/uL (4.5-10.5)
[2016-11-13 08:25] LABS: MANUAL DIFF YES %
[2016-11-13 08:39] LABS: BUN (BLOOD UREA NITROGEN) 37 MG/DL (6-23); CALCIUM, SERUM 9.2 MG/DL (8.5-10.4); CHLORIDE, SERUM 103 MMOL/L (96-112); CO2 (CARBON DIOXIDE) 26 MMOL/L (24-34); CREATININE 1.14 MG/DL (0.70-1.30); GFR AFRICAN AMERICAN 70 ML/MIN (>=60); GFR NON AFRICAN AMERICAN 60 ML/MIN (>=60); GLUCOSE, SERUM 82 MG/DL (60-99); POTASSIUM, SERUM 2.8 MMOL/L (3.5-5.3); SODIUM, SERUM 140 MMOL/L (135-148)
[2016-11-13 08:55] LABS: BAND NEUTROPHILS 5 %; HYPOCHROMIA 1+ (3-10/OIF) (0-2/OIF); IMMATURE GRANS ABSOLUTE (CALC) 0.17 10/3/uL (0.0-0.11); LYMPHOCYTES 14 %; LYMPHOCYTES ABSOLUTE (CALC) 1.18 10/3/uL (0.67-4.30); METAMYELOCYTES 2 %; MONOCYTES 11 %; MONOCYTES ABSOLUTE (CALC) 0.92 10/3/uL (0.21-1.20); NEUTROPHILS ABSOLUTE (CALC) 6.13 10/3/uL (2.02-8.40); PLATELET ESTIMATE ADQ (ADEQUATE); SEGMENTED NEUTROPHIL (0) 68 %; TOTAL NUCLEATED CELLS 100; TOXIC GRANULATION 1+
[2016-11-14 05:00] LABS: HEMATOCRIT 31.9 % (40.0-51.0); HEMOGLOBIN 10.6 g/dL (13.6-17.8); MEAN CORPUS HGB CONC 33.2 g/dL (32.0-36.0); MEAN CORPUSCULAR VOLUME 93.3 fL (80-100); MEAN PLATELET VOLUME 8.3 fL (9.2-13.0); PLATELET COUNT 281 10/3/uL (150-400); RBC DISTRIBUTION WIDTH 14.6 % (12.0-16.0); RED CELL COUNT 3.42 10/6/uL (4.7-6.1); WHITE BLOOD CELLS 8.1 10/3/uL (4.5-10.5)
[2016-11-14 05:01] LABS: MANUAL DIFF YES %
[2016-11-14 05:10] LABS: ALBUMIN 2.5 G/DL (3.5-5.0); CHLORIDE, SERUM 107 MMOL/L (96-112); CO2 (CARBON DIOXIDE) 26 MMOL/L (24-34); CREATININE 1.11 MG/DL (0.70-1.30); GFR AFRICAN AMERICAN 72 ML/MIN (>=60); GFR NON AFRICAN AMERICAN 62 ML/MIN (>=60); GLUCOSE, SERUM 85 MG/DL (60-99); PHOSPHORUS, SERUM 3.1 MG/DL (2.5-4.5); POTASSIUM, SERUM 3.8 MMOL/L (3.5-5.3); SODIUM, SERUM 136 MMOL/L (135-148)
[2016-11-14 05:11] LABS: BUN (BLOOD UREA NITROGEN) 31 MG/DL (6-23)
[2016-11-14 05:28] LABS: BAND NEUTROPHILS 2 %; IMMATURE GRANS ABSOLUTE (CALC) 0.16 10/3/uL (0.0-0.11); LYMPHOCYTES 4 %; LYMPHOCYTES ABSOLUTE (CALC) 0.32 10/3/uL (0.67-4.30); METAMYELOCYTES 2 %; MONOCYTES 12 %; MONOCYTES ABSOLUTE (CALC) 0.97 10/3/uL (0.21-1.20); NEUTROPHILS ABSOLUTE (CALC) 6.64 10/3/uL (2.02-8.40); PLATELET ESTIMATE ADQ (ADEQUATE); RBC MORPHOLOGY NORM (NORMAL); SEGMENTED NEUTROPHIL (0) 80 %; TOTAL NUCLEATED CELLS 100
[2016-11-15 10:22] LABS: BASOPHILS 0.4 %; BASOPHILS ABSOLUTE 0.04 10/3/uL (0.0-0.16); EOSINOPHILS 4.1 %; EOSINOPHILS ABSOLUTE 0.42 10/3/uL (0.0-0.53); HEMATOCRIT 33.8 % (40.0-51.0); HEMOGLOBIN 11.3 g/dL (13.6-17.8); IMMATURE GRANULOCYTES 4.1 %; IMMATURE GRANULOCYTES ABSOLUTE 0.42 10/3/uL (0.0-0.11); LYMPHOCYTES 7.5 %; LYMPHOCYTES ABSOLUTE 0.77 10/3/uL (0.67-4.30); MEAN CORPUS HGB CONC 33.4 g/dL (32.0-36.0); MEAN CORPUSCULAR HEMOGLOB 30.8 pg (26.0-34.0); MEAN CORPUSCULAR VOLUME 92.1 fL (80-100); MEAN PLATELET VOLUME 8.8 fL (9.2-13.0); MONOCYTES ABSOLUTE 1.23 10/3/uL (0.21-1.20); NEUTROPHILS 71.9 %; NEUTROPHILS ABSOLUTE 7.39 10/3/uL (2.02-8.40); PLATELET COUNT 280 10/3/uL (150-400); RBC DISTRIBUTION WIDTH 14.5 % (12.0-16.0); RED CELL COUNT 3.67 10/6/uL (4.7-6.1); WHITE BLOOD CELLS 10.3 10/3/uL (4.5-10.5)
[2016-11-15 10:23] LABS: MANUAL DIFF NO %
[2016-11-15 10:32] LABS: ALBUMIN 2.8 G/DL (3.5-5.0); BUN (BLOOD UREA NITROGEN) 23 MG/DL (6-23); CHLORIDE, SERUM 101 MMOL/L (96-112); CO2 (CARBON DIOXIDE) 27 MMOL/L (24-34); CREATININE 1.15 MG/DL (0.70-1.30); GFR AFRICAN AMERICAN 69 ML/MIN (>=60); GFR NON AFRICAN AMERICAN 59 ML/MIN (>=60); GLUCOSE, SERUM 124 MG/DL (60-99); PHOSPHORUS, SERUM 2.7 MG/DL (2.5-4.5); POTASSIUM, SERUM 3.8 MMOL/L (3.5-5.3); SODIUM, SERUM 136 MMOL/L (135-148)
[2016-11-15] MEDS ORDERED: PROAIR HFA INH (12:33)
[2016-11-15] MEDS ORDERED: SPIRIVA INH (12:34)
[2016-11-15] MEDS ORDERED: DULERA 200 MCG/13 GM INH (12:34)
[2016-11-15] MEDS ORDERED: DSS PO (12:34)
[2016-11-15] MEDS ORDERED: FLAG500TAB PO (12:35)
[2016-11-15] MEDS ORDERED: LEVAQUIN750 MG PO (12:35)
[2016-11-15] MEDS ORDERED: NORCO1 TA1 PO (12:35)
[2016-11-15] MEDS ORDERED: METHOC500B PO (12:36)
[2017-01-26] MEDS ORDERED: SYMBICORT 160/41 INH INH (12:39)
[2017-01-26] MEDS ORDERED: KLONO5 PO (12:40)
[2017-01-26] MEDS ORDERED: AVAP150 PO (12:40)
[2017-03-20] MEDS ORDERED: P10 PO (10:58)
== END 2016-11-15 13:57 | disposition home or self-care (01) | DRG 459 ==
LOC: SDC/OF 08:39 → PACU 16:45 → 3SO 18:14 → CCU 11-08 13:22 → 1SO 11-13 12:07
PROVIDERS: Internal Medicine; Internal Medicine Critical Care Medicine; Internal Medicine Nephrology; Internal Medicine Pulmonary Disease; Orthopaedic Surgery Orthopaedic Surgery of the Spine
PROC: 0ST40ZZ Resection of Lumbosacral Disc, Open Approach (ICD-10-PCS; 2016-11-07)
PROC: 0SP004Z Removal of Internal Fixation Device from Lumbar Vertebral Joint, Open Approach (ICD-10-PCS; 2016-11-07)
PROC: 4A11X4G Monitoring of Peripheral Nervous Electrical Activity, Intraoperative, External Approach (ICD-10-PCS; 2016-11-07)
PROC: 0SG00AJ Fusion of Lumbar Vertebral Joint with Interbody Fusion Device, Posterior Approach, Anterior Column, Open Approach (ICD-10-PCS; principal; 2016-11-07 10:45)
PROC: 0SG30AJ Fusion of Lumbosacral Joint with Interbody Fusion Device, Posterior Approach, Anterior Column, Open Approach (ICD-10-PCS; 2016-11-07 10:45)
PROC: 0SG10K1 Fusion of 2 or more Lumbar Vertebral Joints with Nonautologous Tissue Substitute, Posterior Approach, Posterior Column, Open Approach (ICD-10-PCS; 2016-11-07 10:45)
PROC: 0SG30K1 Fusion of Lumbosacral Joint with Nonautologous Tissue Substitute, Posterior Approach, Posterior Column, Open Approach (ICD-10-PCS; 2016-11-07 10:45)
PROC: 0ST20ZZ Resection of Lumbar Vertebral Disc, Open Approach (ICD-10-PCS; 2016-11-07 10:45)
PROC: 02HV33Z Insertion of Infusion Device into Superior Vena Cava, Percutaneous Approach (ICD-10-PCS; 2016-11-08)
PROC: 4A02X4A Measurement of Cardiac Electrical Activity, Guidance, External Approach (ICD-10-PCS; 2016-11-08)
DX: M96.0 Pseudarthrosis after fusion or arthrodesis (principal); J69.0 Pneumonitis due to inhalation of food and vomit; J95.821 Acute postprocedural respiratory failure; R65.20 Severe sepsis without septic shock; N17.9 Acute kidney failure, unspecified; A41.9 Sepsis, unspecified organism; K31.1 Adult hypertrophic pyloric stenosis; E87.2 Acidosis; E87.1 Hypo-osmolality and hyponatremia; K91.89 Other postprocedural complications and disorders of digestive system; M41.86 Other forms of scoliosis, lumbar region; I95.81 Postprocedural hypotension; Z68.27 Body mass index [BMI] 27.0-27.9, adult; Y83.8 Other surgical procedures as the cause of abnormal reaction of the patient, or of later complication, without mention of misadventure at the time of the procedure; M06.9 Rheumatoid arthritis, unspecified; I12.9 Hypertensive chronic kidney disease with stage 1 through stage 4 chronic kidney disease, or unspecified chronic kidney disease; N18.2 Chronic kidney disease, stage 2 (mild); M48.06 Spinal stenosis, lumbar region; E66.9 Obesity, unspecified; K21.9 Gastro-esophageal reflux disease without esophagitis; E78.5 Hyperlipidemia, unspecified; K44.9 Diaphragmatic hernia without obstruction or gangrene; Z79.82 Long term (current) use of aspirin; Z79.899 Other long term (current) drug therapy; Z87.891 Personal history of nicotine dependence; Z98.1 Arthrodesis status
CPT/HCPCS: 36415; 36569; 36600; 71010; 71275; 72100; 74000; 74176; 80048; 80053; 80069; 80076; 80202; 81001; 82150; 82533; 82550; 82553; 82805; 82962; 83605; 83690; 83735; 83880; 84132; 84145; 84156; 84300; 84443; 84484; 85014; 85018; 85025; 85610; 86850; 86900; 86901; 87040; 87641; 88300; 88304; 88311; 93005; 94640; 97110-GP; 97116-GP; 97161-GP; A9270-GY; C1713; C1751; C8929; G8978-CK-GP; G8979-CJ-GP; J0360; J0690; J1170; J1644; J1720; J1956; J2250; J2370; J2405; J2543; J2710; J2765; J3010; J3370; Q9957; Q9967

== ENCOUNTER 2017-03-24 04:03 | Day surgery (SDC) | payer MEDICARE, BC ==
[~2017-03-24] VITALS: Ht 172.7 cm; Wt 81.6 kg
[~2017-03-24 04:03] MED LIST changes: +AVAP150 PO; +DSS PO; +DULERA 200 MCG/13 GM INH; +FLAG500TAB PO; +LEVAQUIN750 MG PO; +METHOC500B PO; +NORCO1 TA1 PO; +P10 PO; +PROAIR HFA INH; +SPIRIVA INH; +SYMBICORT 160/41 INH INH
== END 2017-03-24 08:27 | disposition home or self-care (01) ==
LOC: SDC 04:03
PROVIDERS: Orthopaedic Surgery Orthopaedic Surgery of the Spine
PROC: 3E0T3BZ Introduction of Anesthetic Agent into Peripheral Nerves and Plexi, Percutaneous Approach (ICD-10-PCS; 2017-03-24)
PROC: 3E0T33Z Introduction of Anti-inflammatory into Peripheral Nerves and Plexi, Percutaneous Approach (ICD-10-PCS; principal; 2017-03-24 07:45)
DX: M54.16 Radiculopathy, lumbar region (principal); Z79.82 Long term (current) use of aspirin; Z79.899 Other long term (current) drug therapy; Z87.891 Personal history of nicotine dependence; Z88.5 Allergy status to narcotic agent; Z98.41 Cataract extraction status, right eye; Z98.42 Cataract extraction status, left eye; Z96.1 Presence of intraocular lens; Z98.890 Other specified postprocedural states
CPT/HCPCS: J1040; J2250; J3010; Q9967